=== PATIENT | male | born 1965 | race Caucasian/White ===

== ENCOUNTER 2017-11-29 01:12 | Emergency (ER) | payer SELFPAY ==
[~2017-11-29] VITALS: Ht 175.3 cm; Wt 82.0 kg
[2017-11-29] MEDS ORDERED: LORAZEPAM 2MG/ML CPJ IV STA (04:16)
[2017-11-29] MEDS ORDERED: SODIUM CHLORIDE 0.9% 1,000 ML IV ONE (04:16)
[2017-11-29 06:30] VITALS: BP 108/58
== END 2017-11-29 06:40 | disposition home or self-care (01) ==
LOC: ER 01:12
DX: F12.10 Cannabis abuse, uncomplicated (principal); F41.9 Anxiety disorder, unspecified; R00.2 Palpitations; F17.200 Nicotine dependence, unspecified, uncomplicated
CPT/HCPCS: 96361; 96374; 99285; J2060; J7030; Z7610